=== PATIENT | female | born 1990 | race Caucasian/White ===

== ENCOUNTER 2016-10-04 08:41 | Emergency (ER) | payer OTHER ==
[~2016-10-04] VITALS: Ht 165.1 cm; Wt 161.9 kg
[~2016-10-04 08:41] MED LIST: FLONASE 0.05% 121 EA NAS; MOTRIN800 MG PO; TRI SPRINTEC PO; ZITHROMAX Z PA250 MG PO; ZYRTEC10 MG PO
[2016-10-04] MEDS ORDERED: LEXAPRO10 MG PO (08:49)
[2016-10-04] MEDS ORDERED: VITAMIN D50000 I3 PO (08:49)
[2016-10-04] MEDS ORDERED: BIRTH CONTROL PO (08:50)
[2016-10-04] MEDS ORDERED: TESSALON PERLE100 M1 PO (10:27)
[2016-10-04] MEDS ORDERED: PREDNISONE20 M1 PO (10:27)
[2016-10-04] MEDS ORDERED: ZITHROMAX250 MG PO (10:27)
[2016-10-18] MEDS ORDERED: ZITHROMAX250 MG PO (11:18)
[2016-10-18] MEDS ORDERED: PREDNISONE20 M1 PO (11:18)
== END 2016-10-04 10:53 | disposition home or self-care (01) ==
LOC: ED 08:41
DX: J20.9 Acute bronchitis, unspecified (principal); Z88.0 Allergy status to penicillin

== ENCOUNTER → 2017-08-04 | Outpatient (CLI) | payer OTHER ==
[~2017-08-04] MED LIST changes: +BIRTH CONTROL PO; +LEXAPRO10 MG PO; +PERCOCET 325 MG1 TA7 PO; +PREDNISONE20 M1 PO; +TESSALON PERLE100 M1 PO; +VITAMIN D50000 I3 PO; +ZITHROMAX250 MG PO
== END | disposition home or self-care (01) ==
LOC: RAD 10:06
DX: M25.572 Pain in left ankle and joints of left foot (principal)

== ENCOUNTER 2018-01-04 07:23 | Emergency (ER) | payer SELFPAY ==
[~2018-01-04] VITALS: Ht 165.1 cm; Wt 155.1 kg
[2018-01-04] MEDS ORDERED: MICROGESTIN FE1 EACH PO (07:31)
[2018-01-04] MEDS ORDERED: CLINDAMYCIN HC300 MG PO (07:32)
[2018-01-04] MEDS ORDERED: IBU800 M2 PO (07:32)
[2018-01-04 07:44] LABS: BASO % 0.1 % (0.0-1.0); EOS % 0.4 % (1.0-4.0); HEMATOCRIT 46.3 % (37.0-47.0); HEMOGLOBIN 14.7 g/dl (12.0-16.0); LYMPH # 0.8 10*3/uL (1.3-4.4); LYMPH % 8.2 % (27.0-41.0); MEAN CORPUSCULAR HGB 26.7 pg (27.0-31.0); MEAN CORPUSCULAR HGB CONC 31.7 g/dl (33.0-37.0); MEAN PLATELET VOLUME 9.7 fl (9.6-12.3); MONO # 0.4 10*3/uL (0.1-1.0); MONO % 4.3 % (3.0-9.0); NEUT # 8.1 10*3/uL (2.3-7.9); NEUT % 86.7 % (47.0-73.0); PLATELET COUNT AUTOMATED 338 10*3/uL (130-400); RED BLOOD COUNT 5.51 10*6/uL (4.10-5.10); RED CELL DISTRI WIDTH 13.3 % (0-14.5); WHITE BLOOD COUNT 9.4 10*3/uL (4.8-10.8)
[2018-01-04 08:00] LABS: BILIRUBIN NEGATIVE (NEGATIVE); BLOOD NEGATIVE (NEGATIVE); CLARITY SL CLOUDY (CLEAR); COLOR YELLOW (YELLOW); GLUCOSE NEGATIVE (NEGATIVE); KETONE NEGATIVE (NEGATIVE); LEUKO ESTERASE NEGATIVE (NEGATIVE); NITRITE NEGATIVE (NEGATIVE); PH 7.5 (5.0-9.0); UROBILINOGEN 0.2 E.U./dl (0.2-1.0)
[2018-01-04 08:05] LABS: ALBUMIN 3.8 gm/dl (3.1-4.5); ALKALINE PHOSPHATASE 80 U/L (45-117); BUN 15 mg/dl (7-24); CHLORIDE 104 mmol/L (98-107); CREATININE 0.98 mg/dL (0.55-1.02); POTASSIUM 4.2 mmol/L (3.5-5.1); SGOT/AST 29 IU/L (3-35); SGPT/ALT 29 U/L (12-78); SODIUM 138 mmol/L (136-145); TOTAL PROTEIN 8.1 gm/dL (6.4-8.2)
[2018-01-04 08:06] LABS: LIPASE 130 U/L (73-393)
[2018-01-04 08:08] LABS: BACTERIA 2+; EPITHELIAL CELLS TNTC
[2018-01-04] MEDS ORDERED: ZOFRAN ODT4 MG SL (08:18)
== END 2018-01-04 09:48 | disposition home or self-care (01) ==
LOC: ED 07:23
PROVIDERS: Emergency Medicine
DX: K02.9 Dental caries, unspecified (principal); E66.01 Morbid (severe) obesity due to excess calories; R10.13 Epigastric pain; R11.10 Vomiting, unspecified; R19.7 Diarrhea, unspecified; E28.2 Polycystic ovarian syndrome; Z90.89 Acquired absence of other organs; Z88.0 Allergy status to penicillin; Z79.899 Other long term (current) drug therapy; Z68.43 Body mass index [BMI] 50.0-59.9, adult